=== PATIENT | male | born 1970 | race Caucasian/White ===

== ENCOUNTER 2016-07-16 11:52 | Emergency (ER) | payer SELFPAY ==
[2016-07-16] MEDS ORDERED: DIPH,PERTUSS,TET(ADACEL) VAC/PF 0.5 ML (Tdap) IM ONE (12:05)
--- NOTE | 2016-07-16 12:09 | PDOC ---
Hand / Wrist Injury HPI - General Chief Complaint: Upper Extremity Problem/Injury Stated Complaint: HAND INJURY Date Seen by Provider: 07/16/16 Time Seen by Provider: 12:00 Source: POSITIVE: Patient Exam Limitations: POSITIVE: No limitations Nurse's Notes Reviewed & Considered: Yes - History of Present Illness Initial Comments: The patient is a 44-year-old male who presents to the emergency department with an injury to his right thumb. He states that he was roping cows when he got his right thumb caught under the rope. He states that he was wearing leather gloves at the time. He has pain and swelling to the base of his right thumb and limited movement of the thumb. There is also some minor abrasion which was bleeding initially. He is unsure when he last had a tetanus shot. He denies any other associated injuries or complaints. Have you received a tetanus shot in the past 10 years?: Unknown - Patient Home Medications Home Medications: Home Medications Hydrocodone/Acetaminophen [Polaris 7.5-325 Tablet] 1 each PO Q6H PRN #10 tablet Lisinopril/Hydrochlorothiazide [Lisinopril-Hctz 10-12.5 mg Tab] 1 tab PO DAILY 07/16/16 Ranitidine HCl [Acid Shop Tech] 75 mg PO DAILY 07/16/16 - Patient Allergies Allergies/Adverse Reactions: Allergies Allergy/AdvReac Type Severity Reaction Status Date / Time No Known Allergies Allergy Unverified 07/16/16 12:01 Past Medical History Past Medical History Reviewed: Other (please comment) (He states he is generally healthy except for history of hypertension.) ROS - Limitations ROS Limitations: No Limitations (Review of systems otherwise noncontributory.) Hand / Wrist Injury Exam - General Appearance General Appearance: POSITIVE: Alert, Cooperative, No Acute Distress - Extremities Upper Extremity: POSITIVE: Other (examination of the right hand and thumb does reveal significant swelling at the MP joint at the base of his thumb extending into the thenar web space with some early ecchymosis, he does have limited range of motion of the thumb secondary to pain, good cap refill and sensation in the tip of the thumb, no tenderness to the hand or wrist) Neurovascular / Tendon: POSITIVE: Sensation Normal, No Vascular Compromise Hand / Wrist Injury Progress - Results Reviewed by me Xrays/CTs/US Reviewed by me: Yes Discussed with Radiologist: Yes Radiology Findings: X-ray of the right thumb reveals a comminuted fracture the proximal phalanx of the thumb per radiologist. - Patient's Progress MDM / ED Course: The patient was unaware when he last had a tetanus shot and therefore his tetanus was updated with TDap. X-ray findings were discussed with the patient. He does have a comminuted fracture the proximal phalanx at the base of his thumb. He does have some very superficial abrasions at the base of the thumb however it does not appear that these communicate with the fracture. I did discuss the patient with Dr. Tan who is on-call for us that [facility]. He also reviewed the films with Dr. Rosales a hand specialist there. Their recommendation was to cover the abrasions with an antibiotic dressing in place the patient in thumb spica splint. He will follow-up with [facility] to see Dr. Rosales on Monday or Monday. The patient was advised to ice and elevate the right hand. He was treating main in the thumb spica splint. He was advised he can take ibuprofen 600 mg every 6 hours as needed for pain and was also given Polaris 7.5/325 as needed for pain. History turned to the emergency room if increased pain or numbness, worsening or change in symptoms. Otherwise he will follow-up with [facility] on Monday or Monday as above. - Consult Counseled: POSITIVE: Patient, RE: Radiology Results, RE: DX, RE: Need for F/U Patient Care Time - Estimated PCT Patient Care Time (In Minutes): 25 Vital Signs - Recent Vital Signs Vital Signs: Vital Signs (Last 8 hours) Temp Pulse Resp BP Pulse Ox 07/16/16 12:03 98 F 81 16 157/102 97 - VS Reviewed Vital Signs Reviewed: Yes Discharge Clinical Impression: Thumb fracture Discharge Disposition: Discharged to Home Condition: Fair Prescriptions / Orders: Hydrocodone/Acetaminophen [Polaris 7.5-325 Tablet] 1 each PO Q6H PRN #10 tablet PRN Reason: Pain Patient Instructions Given at Discharge: Thumb Fracture (ED) Additional Instructions: There is a fracture of the right thumb that will likely require some form of surgical repair. Keep the splint in place. Ice and elevate the right hand to reduce swelling. You can take ibuprofen 600 mg every 6 hours as needed for pain /swelling. In addition you been prescribed Polaris 7.5/325 which he can take one every 6 hours as needed for pain. Return to the emergency room if increased pain or numbness, fever, any worsening or change in symptoms. He will need to call [facility] on Monday morning to arrange follow-up with Dr. Rosales who is a hand specialist there. The phone number is [phone] and he said that he would see one Monday or Monday. Follow Up With: NONE,NONE [Primary Care Provider] -
[2016-07-16 12:11] VITALS: RESP 16; TEMP 98
--- NOTE | 2016-07-16 12:58 | DI ---
HISTORY: Pain after trauma. FINDINGS: Examination reveals a transverse and slightly comminuted fracture of the base of the prox imal phalanx of the thumb. There is a vertical fracture of the mid and distal portion of the proxima l phalanx. No significant displacement is identified. IMPRESSION: 1. Transverse, slightly comminuted fracture of the base of the proximal phalanx of the thumb. 2. Vertical fracture of the mid and distal portion of the proximal phalanx.
== END 2016-07-16 13:38 | disposition home or self-care (01) ==
LOC: ER 11:52 → EDBD 11:52 → ER 13:38
DX: S62.511A Displaced fracture of proximal phalanx of right thumb, initial encounter for closed fracture (principal); W23.0XXA Caught, crushed, jammed, or pinched between moving objects, initial encounter
CPT/HCPCS: 29125; 73140; 90471; 99282